=== PATIENT | female | born 1955 | race Native Hawaiian/Other Pacific Islander ===

== ENCOUNTER 2017-03-10 07:53 | Day surgery (SDC) | payer MEDICAID ==
[2017-03-10] MEDS ORDERED: Lactated Ringer's 500 ML IV ONE (08:12)
[2017-03-10] MEDS ORDERED: Propofol 10 mg/ml Inj (20 ML) ONE (09:11)
[2017-03-10 09:41] VITALS: TEMP 97.5
[2017-03-10 10:02] VITALS: BP 104/55; PULSE 66; RESP 16; O2SAT 100
== END 2017-03-10 10:06 | disposition home or self-care (01) ==
LOC: H.ENDO 07:53
PROVIDERS: ATTEND Internal Medicine Gastroenterology
DX: Z12.11 Encounter for screening for malignant neoplasm of colon (principal); E78.5 Hyperlipidemia, unspecified; K64.0 First degree hemorrhoids
CPT/HCPCS: 45378; J2001; J2704; J7120